=== PATIENT | male | born 1945 | race Caucasian/White ===

== ENCOUNTER 2020-05-19 01:55 | Emergency (ER) | payer OTHER ==
[~2020-05-19 01:55] MED LIST: CARDIZEM30 MG PO; CRESTOR10 MG PO; ELIQUIS5 MG PO; ISOSORBIDE MONO60 MG PO; MOBIC7.5 MG PO; PLAVIX75 MG PO; PRINIVIL20 MG PO; PROBIOTIC1 EAC1 PO; PROTONIX 40MG T40 MG PO; RANEXA500 MG PO; TORSEMIDE20 MG PO; [UNRECOGNIZED DRUG - CODE] PO
[2020-05-19 03:19] LABS: INR 1.41 (0.9-1.2); PROTHROMBIN TIME 16.4 SECONDS (11.4-13.6); PTT 34.6 SECONDS (22.2-34.7)
[2020-05-19] MEDS ORDERED: NORCO 5-325 TA1 EACH PO (04:19)
== END 2020-05-19 04:30 | disposition home or self-care (01) ==
LOC: FER 01:55
PROVIDERS: Emergency Medicine Emergency Medical Services
DX: R04.0 Epistaxis (principal); I10 Essential (primary) hypertension; K21.9 Gastro-esophageal reflux disease without esophagitis; Z95.1 Presence of aortocoronary bypass graft; Z95.0 Presence of cardiac pacemaker; Z79.01 Long term (current) use of anticoagulants; Z79.899 Other long term (current) drug therapy; Z79.02 Long term (current) use of antithrombotics/antiplatelets
CPT/HCPCS: 36415; 85610; 85730; 99283; J2270; J2405

== ENCOUNTER 2020-10-29 14:21 | Emergency (ER) | payer OTHER ==
[~2020-10-29 14:21] MED LIST changes: +NORCO 5-325 TA1 EACH PO
[2020-10-29] MEDS ORDERED: MEDROL 4MG DOSEP4 MG PO (18:32)
== END 2020-10-29 18:45 | disposition home or self-care (01) ==
LOC: FER 14:21
DX: M54.12 Radiculopathy, cervical region (principal); I10 Essential (primary) hypertension
CPT/HCPCS: 93971

== ENCOUNTER 2021-06-12 07:37 | Emergency (ER) | payer OTHER ==
[~2021-06-12 07:37] MED LIST changes: +MEDROL 4MG DOSEP4 MG PO
[2021-06-12 08:46] LABS: BASOPHIL 0.4 % (0-2); EOSINOPHIL 0 % (0-7); HCT 34.7 % (42.0-52.0); HGB 11.6 g/dl (13.2-18.0); LYMPHOCYTE 13.3 % (15-48); MCH 31.5 pg (25.0-31.0); MCHC 33.4 g/dL (32.0-36.0); MCV 94.3 fL (78.0-100.0); MONOCYTE 8.1 % (0-12); MPV 11.5 fL (6.0-9.5); NEUTROPHIL 77.8 % (41-80); NRBC 0; PLT 135 K/uL (150-400); RBC 3.68 M/uL (4.70-6.00); RDW 13.3 % (11.5-14.0); WBC 6.7 K/uL (4.0-10.5)
[2021-06-12 09:02] LABS: CREATININE 2.98 mg/dL (0.67-1.17); POTASSIUM 3.9 mmol/L (3.5-5.1); URIC ACID 10.4 mg/dL (3.5-7.2)
[2021-06-12] MEDS ORDERED: CLEOCIN300 MG PO (09:27)
== END 2021-06-12 09:39 | disposition home or self-care (01) ==
LOC: FER 07:37
PROVIDERS: Emergency Medicine
DX: L03.115 Cellulitis of right lower limb (principal); N17.9 Acute kidney failure, unspecified; N18.9 Chronic kidney disease, unspecified; I25.2 Old myocardial infarction; I50.9 Heart failure, unspecified; Z95.0 Presence of cardiac pacemaker; Z79.01 Long term (current) use of anticoagulants; Z79.02 Long term (current) use of antithrombotics/antiplatelets; Z79.899 Other long term (current) drug therapy
CPT/HCPCS: 36415; 80048; 84550; 85025; 99283